=== PATIENT | female | born 1970 | race Caucasian/White ===

== ENCOUNTER 2020-06-07 11:29 | Day surgery (SDC) | payer BC ==
[~2020-06-07] VITALS: Ht 157.5 cm; Wt 53.0 kg
[~2020-06-07 11:29] MED LIST: ASPI1TAB31 PO; BUPIVACAINE/PF 0.25% ONE; CYCL10TA2 PO; EPINEPHRINE 1 MG/ML, 1ML ONE; [UNRECOGNIZED DRUG - CODE] PO
[2020-06-07 12:04] VITALS: BP 125/86
[2020-06-07] MEDS ORDERED: LACTATED RINGERS 1,000 ML IV SCH (12:30)
[2020-06-07] MEDS ORDERED: CHLORHEXIDINE 15 ML UDC PO ONE (12:30)
[2020-06-07] MEDS ORDERED: MIDAZOLAM 1 MG/ML, 2ML ONE (12:48)
[2020-06-07] MEDS ORDERED: FENTANYL PF 250 MCG/5ML ONE (12:48)
[2020-06-07] MEDS ORDERED: GLYCOPYRROLATE 0.2MG/1ML, 5ML ONE (12:49)
[2020-06-07] MEDS ORDERED: ROCURONIUM 10MG/ML,5ML ONE (12:49)
[2020-06-07] MEDS ORDERED: NEOSTIGMINE 1 MG/ML, 10ML ONE (12:49)
[2020-06-07] MEDS ORDERED: PROPOFOL 10 MG/ML, 20ML ONE (12:49)
[2020-06-07] MEDS ORDERED: ONDANSETRON 2MG/ML, 2ML ONE (12:49)
[2020-06-07] MEDS ORDERED: CEFOTETAN 2 GM ONE (12:49)
[2020-06-07] MEDS ORDERED: DEXAMETHASONE 4 MG/ML, 1ML ONE (13:42)
[2020-06-07] MEDS ORDERED: OXYcodone 5 MG/5 ML ORAL.SOL UDC PO PRN (14:00)
[2020-06-07] MEDS ORDERED: ACETAMINOPHEN 325 MG TABLET PO PRN (14:00)
[2020-06-07] MEDS ORDERED: PROMETHAZINE 25 MG/ML, 1ML IVPush PRN (14:00)
[2020-06-07] MEDS ORDERED: LABETALOL 5MG/ML, 20ML IV PRN (14:00)
[2020-06-07] MEDS ORDERED: HYDROmorphone 1 MG/ML, 1ML INJ IVPush PRN (14:00)
[2020-06-07] MEDS ORDERED: MEPERIDINE/PF 25MG/0.5ML IVPush PRN (14:00)
[2020-06-07] MEDS ORDERED: HALOPERIDOL 5 MG/ML IV PRN (14:00)
[2020-06-07] MEDS ORDERED: FENTANYL PF 100 MCG/2ML IV PRN (14:00)
[2020-06-07] MEDS ORDERED: hydrALAzine 20 MG/ML, 1ML IV PRN (14:00)
[2020-06-07] MEDS ORDERED: morphine SULFATE 10 MG/ML, 1ML IVPush PRN (14:00)
[2020-06-07] MEDS ORDERED: KETOROLAC 30 MG/1 ML ONE (14:15)
[2020-06-07] MEDS ORDERED: FENTANYL PF 100 MCG/2ML ONE ×2 (14:31→15:24)
[2020-06-07] MEDS ORDERED: OXYC-302 PO (14:55)
[2020-06-07] MEDS ORDERED: OXYcodone 5 MG/5 ML ORAL.SOL UDC ONE (15:24)
== END 2020-06-07 19:40 | disposition home or self-care (01) ==
LOC: OUT 11:29
PROVIDERS: ATTEND Surgery
DX: K80.10 Calculus of gallbladder with chronic cholecystitis without obstruction (principal); Z20.822 Contact with and (suspected) exposure to COVID-19; Z79.899 Other long term (current) drug therapy
CPT/HCPCS: 47562; 88304; C1760; J0171; J1100; J1170; J2250; J2405; J2704; J2710; J3010; J7120; U0003; J1885